=== PATIENT | female | born 1935 | race Caucasian/White ===

== ENCOUNTER 2018-02-01 06:30 | Emergency (ER) | payer OTHER ==
[2018-02-01 07:14] LABS: Absolute Lymphocytes (CBC) 0.8 K/uL (0.7-4.9); Absolute Neutrophil 7.2 K/uL (1.8-8.0); Basophils % 0.3 % (0-1.3); Eosinophils % 0.7 % (0-4.4); Hematocrit 40.4 % (36.0-45.0); Lymphocytes % 8.5 % (15.3-44.8); MCH 30.6 pg (27.0-35.0); MCV 92.7 fL (80-100); MPV 10.8 fL (7.6-11.3); Monocytes % 11.4 % (3.3-12.3); RBC Red Blood Cell Count 4.35 M/uL (3.86-4.86)
[2018-02-01 07:15] LABS: Protime INR 1.07
[2018-02-01 07:19] LABS: BUN Blood Urea Nitrogen 17 mg/dL (7-18); Bicarbonate 32 mmol/L (21-32); CKMB Creatine Kinase MB 2.6 ng/mL (0.3-3.6); Creatine Phosphokinase 71 U/L (26-192); Glucose Level 99 mg/dL (74-106); Magnesium 2.2 mg/dL (1.8-2.4); NT PRO-BNP 3168 pg/mL (<450); Potassium 3.7 mmol/L (3.5-5.1); Sodium Level 142 mmol/L (136-145); Troponin (Emerg Dept Use Only) < 0.02 ng/mL (0.0-0.045)
--- NOTE | 2018-02-01 08:10 | RAD REPORT ---
EXAM DESCRIPTION: CT - [id number] - 02/01/2018 6:56 am CLINICAL HISTORY: Trauma, head and neck injury. PAIN COMPARISON: No comparisons TECHNIQUE: Axial 5 mm thick images of the head were obtained. Axial 2 mm thick images of the cervical spine were obtained with sagittal and coronal reconstruction images generated and reviewed. All CT scans are performed using dose optimization technique as appropriate and may include automated exposure control or mA/KV adjustment according to patient size. FINDINGS: CT HEAD WITHOUT CONTRAST: No acute hemorrhage, hydrocephalus or extra-axial collection is identified.Moderate generalized brain atrophy is present with mild to moderate periventricular and deep white matter chronic microvascular ischemic changes.No areas of brain edema or midline shift. Mild soft tissue swelling is seen anterior to the right zygoma.The paranasal sinuses and mastoids rec ent Chrissy clear. Large ikrk bullosa noted bilaterally.The calvarium is intact. CT CERVICAL SPINE WITHOUT CONTRAST: No fracture or subluxation.Midcervical degenerative changes present with disc thinning and prominent posterior osteophytosis.No prevertebral soft tissues swelling is identified. Carotid atherosclerosis present. Upper lung woods are emphysematous with ill-defined scarring present in the apices. IMPRESSION: No acute intracranial or cervical spine findings. Moderate midcervical degenerative change.
--- NOTE | 2018-02-01 08:10 | RAD REPORT ---
EXAM DESCRIPTION: CT - CTFB CLINICAL HISTORY: FACIAL PAIN Fall, trauma COMPARISON: No comparisons TECHNIQUE: Axial 2 mm thick images of the face were obtained with sagittal and coronal reconstructio n images. All CT scans are performed using dose optimization technique as appropriate and may include automated exposure control or mA/KV adjustment according to patient size. FINDINGS: No acute facial bone fracture is seen.The mandible is intact. The globes and orbital contents are grossly unremarkable.The paranasal sinuses and mastoids are essen tially clear. Scalp hematoma is noted frontal region. Soft tissue swelling is seen also anterior to the right zygom a. IMPRESSION: Negative for facial bone fracture.
[2018-02-01] MEDS ORDERED: LIDOCAINE 1% MPF 5 ML VIAL ONE (09:05)
--- NOTE | 2018-02-01 09:42 | ER ---
Nurse's Notes [facility] Name: Rere Merchant Age: 82 yrs Sex: Female : 1935 Arrival Date: 02/01/2018 Time: 06:38 Bed 2 Private MD: Diagnosis: Fall on same level from slipping, tripping and stumbling;Superficial injury of head;Laceration without foreign body of scalp;Abrasion of left forearm-skin tear;Abrasion of right hand-skin tear Presentation: 02/01 06:41 Presenting complaint: EMS states: EMS called to [facility], nursing staff ea reported unwitnessed fall, laceration on right eyebrow, skin tear to left elbow right hand and left hand, hematoma to right cheek. BGL 120. Care prior to arrival: BP 148/94, pulse:98, RR: 16, BGL 120, C collar. Mechanism of Injury: Fall fall was unwitnessed. Trauma event details: Injury occurred in the [facility], Injury occurred: at home. Injury occurred: February 01, 2018 Injury occurred at: 06:45. 06:41 Acuity: ROLAND 2 ea 06:41 Method Of Arrival: EMS: [facility] ea 07:02 Transition of care: patient was received from another setting of care (long-term care ea facility), [facility]. Onset of symptoms was February 01, 2018. Risk Assessment: Do you want to hurt yourself or someone else? Patient reports no desire to harm self or others. Initial Sepsis Screen: Does the patient meet any 2 criteria? No. Patient's initial sepsis screen is negative. Does the patient have a suspected source of infection? No. Patient's initial sepsis screen is negative. Trauma Activation: Alert Physician: ED Physician; Name: ; Notified At: ; Arrived At: Physician: General Surgeon; Name: ; Notified At: ; Arrived At: Physician: Radiology; Name: ; Notified At: ; Arrived At: Physician: Respiratory; Name: ; Notified At: ; Arrived At: Physician: Lab; Name: ; Notified At: ; Arrived At: Historical: - Allergies: 07:01 PENICILLINS; ea 07:01 Diphenhydramine; ea 07:01 Tetanus-Diphtheria Toxoids-Td; ea - Home Meds: 07:01 aspirin 81 mg Oral chew 1 tab once daily [Active]; docusate sodium 100 mg Oral cap 1 ea cap 2 times per day [Active]; duloxetine 60 mg oral cpDR 1 cap once daily [Active]; fentanyl 12 mcg/hr Topical pt72 1 patch every 72 hours [Active]; furosemide 20 mg Oral tab 1 tab once daily [Active]; Multaq 400 mg oral tab 1 tab 2 times per day [Active]; polyethylene glycol 3350 17 gram/dose oral powd once daily [Active]; Risperdal Oral [Active]; - PMHx: 07:01 Alzheimers; Atrial Fib; Hypertension; CHF; ea - Immunization history:: Adult Immunizations unknown. - Social history:: Smoking status: unknown. - Immunization history: Last tetanus immunization: unknown. - Ebola Screening: : No symptoms or risks identified at this time. Screenin:40 Abuse screen: Denies threats or abuse. Nutritional screening: No deficits noted. ea Tuberculosis screening: No symptoms or risk factors identified. Fall Risk None identified. Primary Survey: 06:40 A: Airway: patent. Breathing/Chest: Respiratory pattern: regular, Respiratory effort: ea spontaneous, Breath sounds: diminished, bilaterally. Chest inspection: symmetrical rise and fall of the chest. Circulation: Heart tones present. Skin color: pale, Skin temperature: cool, warm blanket placed on patient. Disability Alert. 07:03 Reassessment Airway Airway Patent Breathing/Chest Respiratory pattern Regular aa5 Respiratory effort Spontaneous Unlabored Chest inspection Symmetrical. Secondary Survey: 06:40 Injury Description: Laceration sustained to right supraorbital ridge and middle aspect ea of right eyebrow is 2.6 to 7.5 cm long, bleeding moderately. Assessment: 06:46 General: Appears uncomfortable, Behavior is cooperative. Pain: Unable to use pain ea scale. FLACC scale score is 7 out of 10. Neuro: Level of Consciousness is confused, Oriented to person, Pupils are PERRLA. Cardiovascular: Heart tones S1 S2 present Patient's skin is warm and dry. Respiratory: Airway is patent Respiratory effort is even, unlabored, Respiratory pattern is regular, symmetrical, Breath sounds are clear bilaterally. GI: Abdomen is non-distended, Bowel sounds present X 4 quads. Abd is soft and non tender X 4 quads. Derm: laceration noted to right brow area, hematoma noted to right cheek bone, skin tear to right and left hands and left elbow. Injury Description: Laceration sustained to middle aspect of right eyebrow and right supraorbital ridge. 06:50 Reassessment: Pt taken to CT. ea 07:03 Reassessment: Pt back from CT scan. C-collar in place. Warm blankets noted. . aa5 07:03 General: Appears comfortable, Behavior is calm, cooperative. Pain: Unable to use pain aa5 scale. Patient is disoriented. Does not appear to understand pain scale. FLACC scale score is 4 out of 10. Neuro: Level of Consciousness is confused, Oriented to person, Pt able to follow some commands. . Pocket And Pulley Machine Operator are weak bilaterally Moves all extremities. PERRL. Cardiovascular: Heart tones S1 S2 present Rhythm is irregular. Respiratory: Airway is patent Respiratory effort is even, unlabored, Respiratory pattern is regular, symmetrical, Breath sounds are clear bilaterally. GI: Abdomen is flat, non-distended, Bowel sounds present X 4 quads. Abd is soft X 4 quads. : No signs and/or symptoms were reported regarding the genitourinary system. EENT: No signs and/or symptoms were reported regarding the EENT system. Derm: Skin is pink, warm \T\ dry. Bruising that is light purple noted to right side of forehead and right cheek. Laceration noted above right eyebrow, measuring approximately 1 in, no active bleeding noted. Dried blood noted to face. Skin tears noted to proximal knuckle of right index finger, left elbow, and left wrist. No active bleeding noted to skin tears. . Musculoskeletal: Range of motion: intact in all extremities. 07:35 Reassessment: Pt's daughter at bedside. Pt's daughter notified of wait time for lab aa5 results and radiology results. Pt currently resting in bed with eyes closed, respirations even and unlabored, skin is pink/warm/dry. 08:22 Reassessment: Dried blood to face cleaned and wound care completed by CONNOR Arredondo. aa5 08:55 Reassessment: C-collar removed. . aa5 08:55 Neuro: Level of Consciousness is confused, Oriented to person. Respiratory: Airway is aa5 patent Respiratory effort is even, unlabored, Respiratory pattern is regular, symmetrical. Derm: Skin is pink, warm \T\ dry. 08:55 Reassessment: Pt's daughter at bedside. Awaiting laceration repair. . aa5 09:33 Reassessment: AB[employer]NC[employer] MEMBER at bedside completing laceration repair. Pt tolerating well. . aa5 09:40 Neuro: Level of Consciousness is confused, Oriented to person. Respiratory: Airway is aa5 patent Respiratory effort is even, unlabored, Respiratory pattern is regular, symmetrical. Derm: Skin is pink, warm \T\ dry. Vital Signs: 06:40 BP 154 / 46; Pulse 83; Resp 18; Temp 97.6; Pulse Ox 95% on 4 lpm NC; Weight 58.97 kg; ea Height 5 ft. 5 in. (165.10 cm); 07:05 BP 114 / 97; Pulse 99; Resp 18 S; Temp 97.0(TE); Pulse Ox 96% on R/A; aa5 07:30 BP 116 / 82; Pulse 111; Resp 20 S; Temp 97.0(TE); Pulse Ox 98% on R/A; aa5 08:22 BP 120 / 84; Pulse 102; Resp 18 S; Pulse Ox 96% on R/A; aa5 09:20 BP 118 / 80; Pulse 98; Resp 16 S; Temp 97.2(TE); Pulse Ox 97% on R/A; aa5 06:40 Body Mass Index 21.63 (58.97 kg, 165.10 cm) ea Raymond Coma Score: 07:03 Eye Response: spontaneous(4). Verbal Response: confused(4). Motor Response: obeys ea commands(6). Total: 14. Trauma Score (Adult): 06:40 Eye Response: spontaneous(1); Verbal Response: confused(1); Motor Response: obeys ea commands(2); Systolic BP: > 89 mm Hg(4); Respiratory Rate: 10 to 29 per min(4); Raymond Score: 14; Trauma Score: 12 07:05 Eye Response: spontaneous(1); Verbal Response: confused(1); Motor Response: obeys aa5 commands(2); Systolic BP: > 89 mm Hg(4); Respiratory Rate: 10 to 29 per min(4); Raymond Score: 14; Trauma Score: 12 07:30 Eye Response: spontaneous(1); Verbal Response: confused(1); Motor Response: obeys aa5 commands(2); Systolic BP: > 89 mm Hg(4); Respiratory Rate: 10 to 29 per min(4); Raymond Score: 14; Trauma Score: 12 08:22 Eye Response: spontaneous(1); Verbal Response: confused(1); Motor Response: obeys aa5 commands(2); Systolic BP: > 89 mm Hg(4); Respiratory Rate: 10 to 29 per min(4); Raymond Score: 14; Trauma Score: 12 09:20 Eye Response: spontaneous(1); Verbal Response: confused(1); Motor Response: obeys aa5 commands(2); Systolic BP: > 89 mm Hg(4); Respiratory Rate: 10 to 29 per min(4); Raymond Score: 14; Trauma Score: 12 ED Course: 06:38 Patient arrived in ED. em1 06:39 [facility]atelyn Limon [facility]C [facility] kb 06:39 Primitivo Callejas MD is Attending Physician. kb 06:40 Repositioned patient. Cleaned of incontinence. Linen changed. mw2 06:40 Patient has correct armband on for positive identification. Bed in low position. Call ea light in reach. Side rails up X2. 06:40 Arm band placed on right wrist. Patient placed in an exam room, on a stretcher, on ea pulse oximetry. 06:40 Oxygen administration via nasal cannula \T\ 4L/min. Thermoregulation: warm blanket given ea to patient. 06:45 Triage completed. ea 06:52 Inserted saline lock: 22 gauge in right forearm, using aseptic technique. Blood ak1 collected. 06:57 CT Head C Spine In Process Unspecified. EDMS 06:57 CT Facial Bones W/O Con In Process Unspecified. EDMS 07:00 Report received from Earlene RN and ELLIOTT Wright. aa5 07:47 Gema Richey, RN is Primary Nurse. aa5 08:22 Wound care: to skin tears on right hand and left elbow, cleaned with chlorhexidine and dh3 normal saline. Dressed with steri-strips, non-adherent gauze and Kerlix. 08:22 Wound care: to laceration cleaned forehead with chlorhexidine and normal saline. dh3 09:33 Assist provider with laceration repair on above right eyebrow using sutures. Set up aa5 tray. Performed by Katelyn ARGUELLES Dressed with Neosporin, non-adherent dressing and Kerlix Patient tolerated well. 10:19 IV discontinued, intact, bleeding controlled, No redness/swelling at site. Pressure aa5 dressing applied. Administered Medications: 09:32 Drug: Lidocaine (1 %) 1 vials {Note: administered during laceration repair by [employer] MEMBER.} aa5 Volume: 5 ml; Route: Infiltration; :45 Drug: Tylenol 1000 mg Route: PO; aa5 10:19 Follow up: Response: No adverse reaction aa5 Intake: :45 PO: 60ml (Water); Total: 60ml. aa5 Outcome: :42 Discharge ordered by . reece :42 Patient's length of stay in the Emergency Department was greater than 2 hours. aa5 10:19 Discharged to home via wheelchair, with family. aa5 10:19 Condition: stable 10:19 Discharge instructions given to Pt's daughter Instructed on discharge instructions, follow up and referral plans. wound care, Demonstrated understanding of instructions, follow-up care, Report given to Irlanda at [facility]. 10:20 Patient left the ED. aa5 Signatures: Dispatcher [employer] EDMS Katelyn Limon, BALLOON DIPPER-C BALLOON DIPPER-CkAmandeep Jimenez em1 Gema Richey, RN RN 5 Earlene Washington RN RN msMaria Elena Shields [facility] Adriana Olivo, RN RN Vanessa Miner 2 Corrections: (The following items were deleted from the chart) 06:56 06:41 Care prior to arrival: BP 148/94, pulse:98, RR: 16, BGL 120 [facility] 08:49 08:22 Wound care: to skin tears on right hand and left elbow, cleaned with dh3 chlorhexidine and normal saline. Dressed with steri-strips, non-adherent gauze and tube gauze. dh3
--- NOTE | 2018-02-01 09:43 | EDPHYS ---
Physician Documentation [facility] Name: Rere Merchant Age: 82 yrs Sex: Female : 1935 Arrival Date: 02/01/2018 Time: 06:38 Bed 2 Private MD: ED Physician Primitivo Callejas HPI: 02/01 07:48 This 82 yrs old Female presents to ER via EMS with complaints of Fall Injury. kb 07:48 Details of fall: The patient fell from an upright position. Onset: The symptoms/episode kb began/occurred this morning. Associated injuries: The patient sustained injury to the head, contusion, hematoma, laceration, 5 cm(s), swelling, left arm and right hand, skin tear. Severity of symptoms: At their worst the symptoms were moderate, in the emergency department the symptoms are unchanged. The patient has not experienced similar symptoms in the past. The patient has not recently seen a physician. EMS reports they were called for fall from standing. Fall was unwitnessed. Unknown LOC, unknown downtime. Pt oriented to person only, which is normal for her. Laceration above right eye, hematoma below right eye, skin tears to left forearm and right hand. . Historical: - Allergies: 07:01 PENICILLINS; ea 07:01 Diphenhydramine; ea 07:01 Tetanus-Diphtheria Toxoids-Td; ea - Home Meds: 07:01 aspirin 81 mg Oral chew 1 tab once daily [Active]; docusate sodium 100 mg Oral cap 1 ea cap 2 times per day [Active]; duloxetine 60 mg oral cpDR 1 cap once daily [Active]; fentanyl 12 mcg/hr Topical pt72 1 patch every 72 hours [Active]; furosemide 20 mg Oral tab 1 tab once daily [Active]; Multaq 400 mg oral tab 1 tab 2 times per day [Active]; polyethylene glycol 3350 17 gram/dose oral powd once daily [Active]; Risperdal Oral [Active]; - PMHx: 07:01 Alzheimers; Atrial Fib; Hypertension; CHF; ea - Immunization history:: Adult Immunizations unknown. - Social history:: Smoking status: unknown. - Immunization history: Last tetanus immunization: unknown. - Ebola Screening: : No symptoms or risks identified at this time. ROS: 07:45 Constitutional: Negative for fever, chills, and weight loss, Cardiovascular: Negative kb for chest pain, palpitations, and edema, Respiratory: Negative for shortness of breath, cough, wheezing, and pleuritic chest pain, Abdomen/GI: Negative for abdominal pain, nausea, vomiting, diarrhea, and constipation. 07:45 MS/extremity: Positive for of the right hand and left arm, skin tears. 07:45 Skin: Positive for ecchymosis, laceration(s), of the right lower eyelid and right side of forehead. Exam: 07:45 Chest/axilla: Normal chest wall appearance and motion. Nontender with no deformity. kb No lesions are appreciated. Cardiovascular: Regular rate and rhythm with a normal S1 and S2. No gallops, murmurs, or rubs. Normal PMI, no JVD. No pulse deficits. Respiratory: Lungs have equal breath sounds bilaterally, clear to auscultation and percussion. No rales, rhonchi or wheezes noted. No increased work of breathing, no retractions or nasal flaring. Abdomen/GI: Soft, non-tender, with normal bowel sounds. No distension or tympany. No guarding or rebound. No evidence of tenderness throughout. 07:45 Constitutional: The patient appears alert, awake. 07:45 Head/face: Noted is no obvious of injury or deformity except contusion, that is superficial, of the right lower eyelid, ecchymosis, that is moderate, of the right lower eyelid, a laceration(s), that is superficial, of the right side of forehead, swelling, that is moderate, of the right lower eyelid and right side of forehead. 07:45 Skin: injury, skin tears to left arm and right hand. 07:45 Neuro: Orientation: no acute changes, per family, to person, Mentation: no acute changes, per family. Vital Signs: 06:40 BP 154 / 46; Pulse 83; Resp 18; Temp 97.6; Pulse Ox 95% on 4 lpm NC; Weight 58.97 kg; ea Height 5 ft. 5 in. (165.10 cm); 07:05 BP 114 / 97; Pulse 99; Resp 18 S; Temp 97.0(TE); Pulse Ox 96% on R/A; aa5 07:30 BP 116 / 82; Pulse 111; Resp 20 S; Temp 97.0(TE); Pulse Ox 98% on R/A; aa5 08:22 BP 120 / 84; Pulse 102; Resp 18 S; Pulse Ox 96% on R/A; aa5 09:20 BP 118 / 80; Pulse 98; Resp 16 S; Temp 97.2(TE); Pulse Ox 97% on R/A; aa5 06:40 Body Mass Index 21.63 (58.97 kg, 165.10 cm) ea Raymond Coma Score: 07:03 Eye Response: spontaneous(4). Verbal Response: confused(4). Motor Response: obeys ea commands(6). Total: 14. Trauma Score (Adult): 06:40 Eye Response: spontaneous(1); Verbal Response: confused(1); Motor Response: obeys ea commands(2); Systolic BP: > 89 mm Hg(4); Respiratory Rate: 10 to 29 per min(4); Raymond Score: 14; Trauma Score: 12 07:05 Eye Response: spontaneous(1); Verbal Response: confused(1); Motor Response: obeys aa5 commands(2); Systolic BP: > 89 mm Hg(4); Respiratory Rate: 10 to 29 per min(4); Raymond Score: 14; Trauma Score: 12 07:30 Eye Response: spontaneous(1); Verbal Response: confused(1); Motor Response: obeys aa5 commands(2); Systolic BP: > 89 mm Hg(4); Respiratory Rate: 10 to 29 per min(4); Ryamond Score: 14; Trauma Score: 12 08:22 Eye Response: spontaneous(1); Verbal Response: confused(1); Motor Response: obeys aa5 commands(2); Systolic BP: > 89 mm Hg(4); Respiratory Rate: 10 to 29 per min(4); Raymond Score: 14; Trauma Score: 12 09:20 Eye Response: spontaneous(1); Verbal Response: confused(1); Motor Response: obeys aa5 commands(2); Systolic BP: > 89 mm Hg(4); Respiratory Rate: 10 to 29 per min(4); Harrison Score: 14; Trauma Score: 12 Laceration: 09:39 Wound Repair of 5cm ( 2.0in ) subcutaneous laceration to right side of forehead. kb Irregularly shaped.. Distal neuro/vascular/tendon intact. Anesthesia: Wound infiltrated with 2.5 mls of 1% lidocaine. Wound prep: Extensive cleansing with hibiclenz by nurse, Wound irrigation with saline by nurse. Skin closed with 12 6-0 Prolene using interrupted sutures and sterile technique. Dressed with Neosporin. Patient tolerated well. MDM: 06:39 Patient medically screened. kb 07:43 Data reviewed: vital signs, nurses notes. Data interpreted: Pulse oximetry: on room air kb is 95 %. Interpretation: normal. 09:41 Counseling: I had a detailed discussion with the patient and/or guardian regarding: the kb historical points, exam findings, and any diagnostic results supporting the discharge/admit diagnosis, lab results, radiology results, the need for outpatient follow up, a family practitioner, to return to the emergency department if symptoms worsen or persist or if there are any questions or concerns that arise at home. 02/01 06:41 Order name: Basic Metabolic Panel; Complete Time: 07:19 kb 02/01 06:41 Order name: CBC with Diff; Complete Time: 07:18 kb 02/01 06:41 Order name: Magnesium; Complete Time: 07:19 kb 02/01 06:41 Order name: NT PRO-BNP; Complete Time: 07:19 kb 02/01 06:41 Order name: PT-INR; Complete Time: 07:37 kb 02/01 06:41 Order name: Troponin (emerg Dept Use Only); Complete Time: 07:19 kb 02/01 06:41 Order name: CT Head C Spine; Complete Time: 08:12 kb 02/01 06:41 Order name: CT Facial Bones W/O Con; Complete Time: 08:12 kb 02/01 06:41 Order name: Cardiac monitoring; Complete Time: 07:09 kb 02/01 06:41 Order name: CPK; Complete Time: 07:19 kb 02/01 06:41 Order name: Ckmb; Complete Time: 07:19 kb 02/01 06:41 Order name: EKG - Nurse/Tech; Complete Time: 07:09 kb 02/01 06:41 Order name: IV Saline Lock; Complete Time: 06:51 kb 02/01 06:41 Order name: Labs collected and sent; Complete Time: 06:51 kb 02/01 06:41 Order name: O2 Per Protocol; Complete Time: 06:43 kb 02/01 06:41 Order name: O2 Sat Monitoring; Complete Time: 06:43 kb 02/01 07:52 Order name: Wound Care: clean and dress skin tears ; Complete Time: 08:25 kb 02/01 09:39 Order name: Prolene, Sutures; Complete Time: 09:43 kb 02/01 09:39 Order name: Dressing - Wound; Complete Time: 09:43 kb 02/01 09:39 Order name: Gloves, Sterile; Complete Time: 09:43 kb 02/01 09:39 Order name: Setup Suture Tray; Complete Time: 09:43 kb Administered Medications: 09:32 Drug: Lidocaine (1 %) 1 vials {Note: administered during laceration repair by HANDLE BAR ASSEMBLER.} aa5 Volume: 5 ml; Route: Infiltration; 09:45 Drug: Tylenol 1000 mg Route: PO; aa5 10:19 Follow up: Response: No adverse reaction aa5 Disposition: 02/01/18 09:42 Discharged to Home. Impression: Fall on same level from slipping, tripping and stumbling, Superficial injury of head, Laceration without foreign body of scalp, Abrasion of left forearm - skin tear, Abrasion of right hand - skin tear. - Condition is Stable. - Discharge Instructions: Laceration Care, Adult, [id number], Skin Tear Care, [id number], Head Injury, Adult, [id number]. - Medication Reconciliation Form, Thank You Letter, Antibiotic Education, Prescription Opioid Use form. - Follow up: Emergency Department; When: As needed; Reason: Worsening of condition. Follow up: Private Physician; When: 2 - 3 days; Reason: Recheck today's complaints, Continuance of care, Re-evaluation by your physician. - Notes: Have sutures removed in 7-10 days Addendum: 02/04/2018 06:40 Co-signature as Attending Physician, Primitivo Callejas MD. g s Signatures: Dispatcher [employer] Katelyn Cohen, ADRIANNE-Winston SILVER-Gema Pleitez RN RN aa5 Adriana Olivo RN RN ea Starr, Gregory, MD MD gs Corrections: (The following items were deleted from the chart) 02/01 09:43 09:42 02/01/2018 09:42 Discharged to Home. Impression: Fall on same level from kb slipping, tripping and stumbling; Superficial injury of head; Laceration without foreign body of scalp; Abrasion of left forearm; Abrasion of right hand. Condition is Stable. Forms are Medication Reconciliation Form, Thank You Letter, Antibiotic Education, Prescription Opioid Use. kb 10:20 09:43 02/01/2018 09:42 Discharged to Home. Impression: Fall on same level from aa5 slipping, tripping and stumbling; Superficial injury of head; Laceration without foreign body of scalp; Abrasion of left forearm - skin tear; Abrasion of right hand - skin tear. Condition is Stable. Discharge Instructions: Laceration Care, Adult, [id number], Skin Tear Care, [id number], Head Injury, Adult, [id number]. Forms are Medication Reconciliation Form, Thank You Letter, Antibiotic Education, Prescription Opioid Use. Follow up: Emergency Department; When: As needed; Reason: Worsening of condition. Follow up: Private Physician; When: 2 - 3 days; Reason: Recheck today's complaints, Continuance of care, Re-evaluation by your physician. kb
[2018-02-01] MEDS ORDERED: ACETAMINOPHEN 500 MG TAB ONE ×2 (09:50)
== END 2018-02-01 10:20 | disposition home or self-care (01) ==
LOC: ER 06:30
PROC: 0JQ10ZZ Repair Face Subcutaneous Tissue and Fascia, Open Approach (ICD-10-PCS; principal; 2018-02-01)
DX: S01.01XA Laceration without foreign body of scalp, initial encounter (principal); S50.812A Abrasion of left forearm, initial encounter; S60.511A Abrasion of right hand, initial encounter; W01.0XXA Fall on same level from slipping, tripping and stumbling without subsequent striking against object, initial encounter; Y93.9 Activity, unspecified; Y92.9 Unspecified place or not applicable; Z79.82 Long term (current) use of aspirin; Z88.0 Allergy status to penicillin; Z88.7 Allergy status to serum and vaccine; Z88.8 Allergy status to other drugs, medicaments and biological substances; I48.91 Unspecified atrial fibrillation; I10 Essential (primary) hypertension; G30.9 Alzheimer's disease, unspecified; F02.80 Dementia in other diseases classified elsewhere, unspecified severity, without behavioral disturbance, psychotic disturbance, mood disturbance, and anxiety
CPT/HCPCS: 36415; 70450; 70486; 72125; 76377; 80048; 82550; 82553; 83735; 83880; 84484; 85025; 85610; 99285

== ENCOUNTER 2018-04-01 20:25 | Inpatient (IN) | payer OTHER ==
[2018-04-01] MEDS ORDERED: NA CHLORIDE 0.9% 250 ML ONE ×2 (21:02→23:16)
--- NOTE | 2018-04-01 21:47 | RAD REPORT ---
EXAM DESCRIPTION: CT - CTHCSPWOC - 04/01/2018 9:19 pm CLINICAL HISTORY: Fall, head and neck injury COMPARISON: CT head and cervical January 2018 TECHNIQUE: Axial 5 mm thick images of the head were obtained. Axial 2 mm thick images of the cervic al spine were obtained with sagittal and coronal reconstruction images generated and reviewed. All CT scans are performed using dose optimization technique as appropriate and may include automated exposure control or mA/KV adjustment according to patient size. FINDINGS: No intracranial hemorrhage, mass, edema or acute intracranial finding. No acute cortical b ased infarction identified. Patient has prominent atrophy and chronic ischemic change. Old posterior right parietal CVA changes match the comparison. Ventricles are in proportion to volume loss. Overall intracranial findings are similar to comparison. Mastoid air cells and paranasal sinuses are clear. No globe or orbit abnormality seen. Left lateral scalp hematoma is present. Cervical bodies are normal in height. No subluxation abnormalities. C2-3 disc space narrowing is seen with calcification in the disc space. This is probably at least partially fused. Significant degener ative change present at the dens anterior C1 level. Significant C4-5, C5-6 and C6-7 disc space narrow ing and endplate spurring. Bony foraminal encroachment present at these levels. No fracture or acute bony abnormality. No pathologic bone process. Central canal detail is inherently limited. No paraspinal mass or hematoma. Apical scarring changes are present. IMPRESSION: No hemorrhage or acute intracranial finding. Atrophy, old infarction changes and chronic ischemic changes are present matching the January 2018 s tudy. Prominent cervical spine degenerative changes are present matching the comparison. No fracture or acu te finding.
--- NOTE | 2018-04-01 21:52 | RAD REPORT ---
EXAM DESCRIPTION: RAD - Pelvis - 04/01/2018 9:34 pm CLINICAL HISTORY: Fall, pelvic pain COMPARISON: None. TECHNIQUE: AP imaging of the pelvis was obtained. FINDINGS: Intertrochanteric left femur fracture is present. Lesser trochanter remains attached to th e shaft of the femur. Femoral neck fracture is not confirmed. Left femoral head maintains positioning in the acetabulum. No pathologic bone process seen. Femoral neck also appears to be intact. There is superior migration of the shaft of the left femur. 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 There is flattening of the superior margin of the right femoral head. This appears to be all chronic change. There is old fracture change to the right inferior pubic leighton s. Bony pelvis is quite osteopenic limiting sensitivity of the examination. Sacral ala also very osteop enic and limited in assessment. SI joint degenerative change noted. No significant soft tissue finding. There is some contusion or edema lateral to the left femur. IMPRESSION: Left femur intertrochanteric fracture as detailed. Right protrusio acetabuli. Osteopenic pelvis limiting assessment. No gross bony pelvic fracture change.
--- NOTE | 2018-04-01 21:54 | RAD REPORT ---
EXAM DESCRIPTION: RAD - Chest Single View - 04/01/2018 9:34 pm CLINICAL HISTORY: Fall, shortness of breath, preop chest examination for femur fracture repair COMPARISON: None. TECHNIQUE: AP portable chest image was obtained 2110 hours . FINDINGS: Diffuse fibrotic lung pattern seen in the lung parenchyma. Pulmonary contusion not suspect ed. In the absence of comparison, interstitial edema or infiltrate cannot be excluded. Significant fa ilure or volume overload doubtful. Heart size normal. Trachea is midline. No measurable pleural effus ion and no pneumothorax. Old degenerative intra matted changes noted to the skeleton. Advanced right shoulder degenerative change present only partially imaged. No acute aortic findings suspected. IMPRESSION: Patient has extensive interstitial lung disease believed to be chronic disease. In the absence of comparison, some component of interstitial edema or infiltrate cannot be excluded. Pneumothorax, pleural fluid and pulmonary contusion not identified.
--- NOTE | 2018-04-01 21:55 | RAD REPORT ---
EXAM DESCRIPTION: RAD - Femur Left - 04/01/2018 9:36 pm CLINICAL HISTORY: Fall, hip and leg pain COMPARISON: None. FINDINGS: AP and cross-table lateral views were obtained. Patient has an intertrochanteric left femu r fracture. Lesser trochanter remains intact to the femur. Femoral head maintains good positioning in the acetabulum. Bones are osteopenic limiting assessment. There may be some involvement of the later al base of the femoral neck. Pathologic etiology is not suspected. Shaft of the femur on the left is intact. No joint effusion. No acute finding in the knee joint. No a ir or foreign body in the soft tissues. IMPRESSION: Left intertrochanteric fracture. Pathologic etiology not suspected. Bones are osteopenic limiting detail. Extension of the fracture into the lateral superior base of the neck cannot be excluded.
--- NOTE | 2018-04-01 22:06 | EDPHYS ---
Physician Documentation [facility] Name: Rere Merchant Age: 82 yrs Sex: Female : 1935 Arrival Date: 04/01/2018 Time: 20:34 Bed 24 Private MD: ED Physician Bentley Mesa HPI: 04/01 20:49 This 82 yrs old Female presents to ER via EMS with complaints of Fall Injury. rn 20:49 Details of fall: The patient fell from seated position. Onset: The symptoms/episode rn began/occurred just prior to arrival. Associated injuries: The patient sustained injury to the head. Severity of symptoms: At their worst the symptoms were mild, in the emergency department the symptoms are unchanged. The patient has experienced a previous episode. Per EMS report, fall from sitting position, per eport tried to stand up, fell forward, hit ground, no LOC, + lac above left eye, no other obvious trauma. . Historical: - Allergies: 21:05 Diphenhydramine; bb 21:05 PENICILLINS; bb 21:05 Tetanus-Diphtheria Toxoids-Td; bb - Home Meds: 21:05 aspirin 81 mg Oral chew 1 tab once daily [Active]; docusate sodium 100 mg Oral cap 1 bb cap 2 times per day [Active]; duloxetine 60 mg Oral cpDR 1 cap once daily [Active]; fentanyl 12 mcg/hr Topical pt72 1 patch every 72 hours [Active]; furosemide 20 mg Oral tab 1 tab once daily [Active]; Multaq 400 mg Oral tab 1 tab 2 times per day [Active]; polyethylene glycol 3350 17 gram/dose Oral powd once daily [Active]; Risperdal Consta 12.5 mg/2 mL intramuscular syrg 4 mL every 14 days [Active]; Remeron 15 mg Oral tab 1 tab once daily [Active]; Depakote Sprinkles 125 mg Oral cpSP 1 caps 2 times per day [Active]; - PMHx: 21:05 Alzheimers; Atrial Fib; CHF; Hypertension; bb - Immunization history: Last tetanus immunization: unknown. - Social history:: Smoking status: Patient/guardian denies using tobacco, Patient/guardian denies using alcohol, street drugs. - Family history:: not pertinent. - Ebola Screening: : No symptoms or risks identified at this time. - Hospitalizations: : No recent hospitalization is reported. ROS: 20:49 Constitutional: Negative for fever, chills, and weight loss, Eyes: Negative for injury, rn pain, redness, and discharge, Neck: Negative for injury, pain, and swelling, Cardiovascular: Negative for chest pain, palpitations, and edema, Respiratory: Negative for shortness of breath, cough, wheezing, and pleuritic chest pain, Abdomen/GI: Negative for abdominal pain, nausea, vomiting, diarrhea, and constipation, MS/Extremity: Negative for injury and deformity, Skin: + facial laceration Neuro: Negative for headache, weakness, numbness, tingling, and seizure. Exam: 20:49 Constitutional: Thin cachectic female, no acute distress Head/Face: Normocephalic, rn atraumatic. Cardiovascular: Irregular rhythm and tachycardic, no murmur Respiratory: Lungs have equal breath sounds bilaterally, clear to auscultation Abdomen/GI: soft, non-tender Back: no spinal tenderness MS/ Extremity: painful ROM left leg without focal tenderness Neuro: Awake, alert, answer some questions but appears confused (unknown if baseline), moves all 4 extremities. Vital Signs: 20:49 BP 130 / 96; Pulse 132; Resp 18 S; Temp 99(A); Pulse Ox 96% on R/A; Weight 45.36 kg bb (R); Height 5 ft. 3 in. (160.02 cm); Pain 4/10; 21:54 BP 115 / 70; Pulse 130; Resp 20; Temp 98.8(R); Pulse Ox 96% on R/A; la1 23:16 BP 115 / 85; Pulse 155; Resp 22; Pulse Ox 96% on 2 lpm NC; la1 23:30 BP 105 / 72; Pulse 129; Resp 18; Pulse Ox 96% on 2 lpm NC; la1 23:34 BP 92 / 61; Pulse 130; Pulse Ox 96% on 2 lpm NC; la1 04/02 00:01 BP 82 / 59; Pulse 134; Resp 16 S; Pulse Ox 97% on 4 lpm NC; bb 00:04 BP 92 / 61; Pulse 133; Resp 16; Pulse Ox 97% on 2 lpm NC; la1 04/01 20:49 Body Mass Index 17.71 (45.36 kg, 160.02 cm) bb Clearwater Coma Score: 04/01 20:49 Eye Response: spontaneous(4). Verbal Response: inappropriate words(3). Motor Response: bb localizes pain(5). Total: 12. Trauma Score (Adult): 20:49 Eye Response: spontaneous(1); Verbal Response: inappropriate words(0); Motor Response: bb localizes pain(1); Systolic BP: > 89 mm Hg(4); Respiratory Rate: 10 to 29 per min(4); Clear[place] Score: 12; Trauma Score: 10 22:27 Eye Response: spontaneous(1); Verbal Response: confused(1); Motor Response: withdraws la1 from pain(1); Systolic BP: > 89 mm Hg(4); Respiratory Rate: 10 to 29 per min(4); Raymond Score: 12; Trauma Score: 11 Laceration: 23:56 Wound Repair of 3cm ( 1.2in ) subcutaneous laceration to middle aspect of left eyebrow snw and outer aspect of left eyebrow. Linear shaped.. Distal neuro/vascular/tendon intact. Anesthesia: Local anesthetic administered with 4 mls of 1% lidocaine w/ Epi. Wound prep: Moderate cleansing with hibiclenz by me. Skin closed with 5 6-0 Prolene using simple sutures and sterile technique. Patient tolerated well. 23:56 Wound Repair of 3cm ( 1.2in ) subcutaneous laceration to left temporal area. Linear snw shaped.. Distal neuro/vascular/tendon intact. Anesthesia: Local anesthetic administered with 0 mls of 1% lidocaine. Wound prep: Moderate cleansing with hibiclenz by nurse. Skin closed with 3 1-0 Kunal using staple gun. Dressed with none. Patient tolerated well. MDM: 20:38 Patient medically screened. rn 22:02 Differential diagnosis: abrasion, closed head injury, contusion, fracture, laceration. rn Data reviewed: vital signs, nurses notes, lab test result(s), radiologic studies, CT scan, plain films, and as a result, I will admit patient. Counseling: I had a detailed discussion with the patient and/or guardian regarding: the historical points, exam findings, and any diagnostic results supporting the discharge/admit diagnosis, lab results, radiology results, the need for further work-up and treatment in the hospital. Response to treatment: the patient's symptoms have mildly improved after treatment. Admission orders: after a detailed discussion of the patient's condition and case, the admit orders are written by me. Special discussion:. ED course: Pt with negative ct head/cspine, + left intertrochanteric femur fracture, patient not ambulatory, bed-bound, will admit for pain control, observation of head injury, and ortho consult. . 04/01 20:41 Order name: Basic Metabolic Panel rn 04/01 20:41 Order name: CBC with Diff rn 04/01 20:41 Order name: XRAY Pelvis; Complete Time: 21:59 rn 04/01 20:41 Order name: Type And Screen rn 04/01 23:08 Order name: ABO/RH no charge EDMS 04/01 20:41 Order name: XRAY Chest (1 view); Complete Time: 21:59 rn 04/01 20:41 Order name: CT Head C Spine; Complete Time: 21:59 rn 04/01 20:41 Order name: XRAY Femur LEFT; Complete Time: 21:59 rn 04/01 20:41 Order name: Labs collected and sent; Complete Time: 22:46 rn 04/01 20:49 Order name: EKG; Complete Time: 20:50 rn 04/01 20:49 Order name: EKG - Nurse/Tech; Complete Time: 22:02 rn 04/01 22:01 Order name: Davis; Complete Time: 22:27 la1 04/01 22:44 Order name: Prolene, Sutures; Complete Time: 22:45 la1 04/01 22:44 Order name: Dressing - Wound; Complete Time: 22:45 la1 04/01 22:44 Order name: Gloves, Sterile; Complete Time: 22:45 la1 04/01 22:44 Order name: Setup Suture Tray; Complete Time: 22:45 la1 Administered Medications: 22:26 Drug: morphine 2 mg Route: IVP; Site: left forearm; la1 22:29 Follow up: Response: No adverse reaction; Pain is decreased la1 22:27 Drug: Zofran 4 mg Route: IVP; Site: left forearm; la1 22:45 Follow up: Response: No adverse reaction la1 22:29 Drug: NS 0.9% 250 ml Route: IV; Rate: bolus; Site: left forearm; la1 22:40 Follow up: IV Status: Completed infusion la1 22:45 Drug: Lidocaine-Epinephrine -1%: (1:100,000) 10 ml Volume: 20 ml; Route: Infiltration; la1 23:34 Drug: Lopressor 2.5 mg Route: IVP; Site: left forearm; la1 04/02 00:06 Follow up: Response: No adverse reaction; HR decreased la1 00:03 Drug: NS 0.9% 500 ml Route: IV; Rate: bolus; Site: left forearm; la1 00:06 Follow up: IV Status: Completed infusion la1 Disposition: 03:08 Co-signature as Attending Physician, Bentley Mesa MD. rn Disposition: 04/01/18 22:04 Hospitalization ordered by Guera Giordano for Inpatient Admission. Preliminary diagnosis are Intertrochanteric fracture of femur, Superficial injury of head. - Bed requested for Telemetry/MedSurg (Inpatient). - Status is Inpatient Admission. bb - Condition is Stable. - Problem is new. - Symptoms have improved. UTI on Admission? No Signatures: Dispatcher [employer] EDPR Yulia Jeffries RN Chrissy Schroeder, RN HOUSE SUPERVISOR-C RN HOUSE SUPERVISOR-Csnw Yasimn Mtz RN Stephanie Young RN RN bb Nieto, Roman, MD MD rn Attema, Lee, RN RN la1 Corrections: (The following items were deleted from the chart) 04/01 22:20 20:42 Creatinine for Radiology+C.LAB.BRZ ordered. [facility] EDMS 23:25 22:04 Hospitalization Ordered by Guera Giordano MD for Inpatient Admission. Preliminary diagnosis is Intertrochanteric fracture of femur; Superficial injury of head. Bed requested for Telemetry/MedSurg (Inpatient). Status is Inpatient Admission. Condition is Stable. Problem is new. Symptoms have improved. UTI on Admission? No. rn 04/02 00:25 04/01 23:25 04/01/2018 22:04 Hospitalization Ordered by Guera Giordano MD for Inpatient bb Admission. Preliminary diagnosis is Intertrochanteric fracture of femur; Superficial injury of head. Bed requested for Telemetry/MedSurg (Inpatient). Status is Inpatient Admission. Condition is Stable. Problem is new. Symptoms have improved. UTI on Admission? No. kl
--- NOTE | 2018-04-01 22:06 | ER ---
Nurse's Notes [facility] Name: Rere Merchant Age: 82 yrs Sex: Female : 1935 Arrival Date: 04/01/2018 Time: 20:34 Bed 24 Private MD: Diagnosis: Intertrochanteric fracture of femur;Superficial injury of head Presentation: 04/01 20:40 Transition of care: patient was received from another setting of care (long-term care facility), [place]. Onset of symptoms was April 01, 2018. Risk Assessment: Do you want to hurt yourself or someone else? Patient reports no desire to harm self or others. Initial Sepsis Screen: Does the patient meet any 2 criteria? No. Patient's initial sepsis screen is negative. Does the patient have a suspected source of infection? No. Patient's initial sepsis screen is negative. 20:40 Trauma event details: Injury occurred in the [facility], Injury occurred: in an bb institution. Injury occurred: April 01, 2018. 20:47 Presenting complaint: EMS states: they were toned out for report of pt having a bb witnessed fall without LOC pt did receive lac to left brow and skin tear to left pinky finger. Care prior to arrival: None. Mechanism of Injury: Fall wheelchair. 20:47 Acuity: ROLAND 2 bb 20:47 Method Of Arrival: EMS: [facility] Trauma Activation: Alert Physician: ED Physician; Name: Moshe; Notified At: 20:34; Arrived At: 20:34 Physician: General Surgeon; Name: ; Notified At: 20:34; Arrived At: Physician: Radiology; Name: Shanique Rubio Betty; Notified At: 20:34; Arrived At: 20:36 Physician: Respiratory; Name: ; Notified At: 20:34; Arrived At: Physician: Lab; Name: ; Notified At: 20:34; Arrived At: Historical: - Allergies: 21:05 Diphenhydramine; bb 21:05 PENICILLINS; bb 21:05 Tetanus-Diphtheria Toxoids-Td; bb - Home Meds: 21:05 aspirin 81 mg Oral chew 1 tab once daily [Active]; docusate sodium 100 mg Oral cap 1 bb cap 2 times per day [Active]; duloxetine 60 mg Oral cpDR 1 cap once daily [Active]; fentanyl 12 mcg/hr Topical pt72 1 patch every 72 hours [Active]; furosemide 20 mg Oral tab 1 tab once daily [Active]; Multaq 400 mg Oral tab 1 tab 2 times per day [Active]; polyethylene glycol 3350 17 gram/dose Oral powd once daily [Active]; Risperdal Consta 12.5 mg/2 mL intramuscular syrg 4 mL every 14 days [Active]; Remeron 15 mg Oral tab 1 tab once daily [Active]; Depakote Sprinkles 125 mg Oral cpSP 1 caps 2 times per day [Active]; - PMHx: 21:05 Alzheimers; Atrial Fib; CHF; Hypertension; bb - Immunization history: Last tetanus immunization: unknown. - Social history:: Smoking status: Patient/guardian denies using tobacco, Patient/guardian denies using alcohol, street drugs. - Family history:: not pertinent. - Ebola Screening: : No symptoms or risks identified at this time. - Hospitalizations: : No recent hospitalization is reported. Screenin:49 Abuse screen: Denies threats or abuse. Tuberculosis screening: No symptoms or risk bb factors identified. 21:06 Nutritional screening: No deficits noted. Fall Risk Fall in past 12 months (25 points). bb Secondary diagnosis (15 points) Alzheimer's, dementia, impaired mobility, IV access (20 points). Ambulatory Aid- None/Bed Rest/Nurse Assist (0 pts). Gait- Normal/Bed Rest/Wheelchair (0 pts) Mental Status- Overestimates/Forgets Limitations (15 pts.). Total Kramer Fall Scale indicates High Risk Score (45 or more points). Fall prevention measures have been instituted. Side Rails Up X 2 Frequent Obs/Assessments Occuring Family Present and informed to notify staff if the need to leave the bedside As available patient and family educated on Fall Prevention Program and Strategies. Primary Survey: 20:54 NO uncontrolled hemorrhage observed. A: The patient needs verbal stimulation to bb respond. Airway: patent. Breathing/Chest: Respiratory pattern: regular, Respiratory effort: spontaneous, unlabored, Breath sounds: clear, bilaterally. Chest inspection: symmetrical rise and fall of the chest. Circulation: Heart tones present. Pulses: palpable right radial artery and left radial artery. Skin color: pink, Skin temperature: warm, dry. Disability Verbal Stimuli. Exposure/Environment: All clothing and personal items were removed. Forensic evidence collection is not deemed to be indicated at this time. Items placed in patient belonging bag. There is no evidence of uncontrolled external bleeding. Obvious injury(ies) are noted at this time: laceration to left brow, old skin tear to right forearm, new skin tear to left pinky finger. 21:59 Reassessment Airway Airway Patent Breathing/Chest Respiratory pattern Regular la1 Respiratory effort Spontaneous Unlabored Circulation Color Dix Temperature Warm Disability Alert. Secondary Survey: 20:54 HEENT: Face Other laceration to left brow. Gastrointestinal: No deficits noted. : No bb deficits noted. Musculoskeletal: Capillary refill < 3 seconds, Tenderness present in left leg. Assessment: 20:54 General: Appears uncomfortable, slender, Behavior is restless. Pain: Unable to use pain bb scale. FLACC scale score is 4 out of 10. Neuro: Level of Consciousness is awake, Oriented to none. Cardiovascular: Heart tones S1 S2 present Capillary refill < 3 seconds Patient's skin is warm and dry. Rhythm is atrial fibrillation with rapid ventricular response. Respiratory: Respiratory effort is even, unlabored, Respiratory pattern is regular, Breath sounds are clear bilaterally. GI: Abdomen is non-distended. Derm: Skin is fragile, with poor turgor has skin tears on right forearm, left pinky finger. Musculoskeletal: Capillary refill < 3 seconds. 21:09 Reassessment: pt to CT scan via stretcher with music sound light technician. bb 22:00 Reassessment: Patient appears in no apparent distress at this time. No changes from la1 previously documented assessment. Patient and/or family updated on plan of care and expected duration. Pain level reassessed. 23:15 Reassessment: Pt's heart rate increasing to the 150-160. Dr Mesa notified and pt to fc get Metoprolol and bolus. Also Dr Giordano in to see pt and speak to family about pt's condition. He is also requesting that the Metoprolol be given IV x [address] Mesa agrees. 23:32 Reassessment: Patient appears in no apparent distress at this time. HR has decreased in la1 to the 120s. 04/02 00:00 Reassessment: report called to Kelsi GALLAGHER for room 411 pt receiving 500 mL bolus of bb normal saline for BP of 82/59 prior to transfer, family at bedside. Vital Signs: 04/01 20:49 BP 130 / 96; Pulse 132; Resp 18 S; Temp 99(A); Pulse Ox 96% on R/A; Weight 45.36 kg bb (R); Height 5 ft. 3 in. (160.02 cm); Pain 4/10; 21:54 BP 115 / 70; Pulse 130; Resp 20; Temp 98.8(R); Pulse Ox 96% on R/A; la1 23:16 BP 115 / 85; Pulse 155; Resp 22; Pulse Ox 96% on 2 lpm NC; la1 23:30 BP 105 / 72; Pulse 129; Resp 18; Pulse Ox 96% on 2 lpm NC; la1 23:34 BP 92 / 61; Pulse 130; Pulse Ox 96% on 2 lpm NC; la1 04/02 00:01 BP 82 / 59; Pulse 134; Resp 16 S; Pulse Ox 97% on 4 lpm NC; bb 00:04 BP 92 / 61; Pulse 133; Resp 16; Pulse Ox 97% on 2 lpm NC; la1 04/01 20:49 Body Mass Index 17.71 (45.36 kg, 160.02 cm) bb Raymond Coma Score: 04/01 20:49 Eye Response: spontaneous(4). Verbal Response: inappropriate words(3). Motor Response: bb localizes pain(5). Total: 12. Trauma Score (Adult): 20:49 Eye Response: spontaneous(1); Verbal Response: inappropriate words(0); Motor Response: bb localizes pain(1); Systolic BP: > 89 mm Hg(4); Respiratory Rate: 10 to 29 per min(4); [place] Score: 12; Trauma Score: 10 22:27 Eye Response: spontaneous(1); Verbal Response: confused(1); Motor Response: withdraws la1 from pain(1); Systolic BP: > 89 mm Hg(4); Respiratory Rate: 10 to 29 per min(4); Raymond Score: 12; Trauma Score: 11 ED Course: 20:34 Patient arrived in ED. al2 20:38 Bentley Mesa MD is Attending Physician. rn 20:45 Arm band placed on Patient placed in an exam room, on a stretcher, on personnel monitor, bb on pulse oximetry. Family accompanied patient. 20:49 Triage completed. bb 20:49 Patient has correct armband on for positive identification. Placed in gown. Bed in low bb position. Call light in reach. Side rails up X2. Adult w/ patient. compliance monitor on. Pulse ox on. NIBP on. 20:49 Patient maintains SpO2 saturation greater than 95% on room air. bb 20:50 Thermoregulation: warm blanket given to patient. bb 20:55 Hiren Rosales, RN is Primary Nurse. la1 21:19 CT Head C Spine In Process Unspecified. EDMS 21:35 XRAY Pelvis In Process Unspecified. EDMS 21:36 XRAY Chest (1 view) In Process Unspecified. EDMS 21:36 XRAY Femur LEFT In Process Unspecified. EDMS 22:04 Guera Giordano MD is Hospitalizing Provider. rn 22:28 Davis cath inserted, using sterile technique, 18 Fr., by tunnel kiln firer, balloon inflated, to la1 gravity drainage, returned cloudy urine. Patient tolerated well. Inserted saline lock: 22 gauge in left forearm, using aseptic technique. Blood collected. 04/02 00:24 No provider procedures requiring assistance completed. Patient admitted, IV remains in bb place. Administered Medications: 04/01 22:26 Drug: morphine 2 mg Route: IVP; Site: left forearm; la1 22:29 Follow up: Response: No adverse reaction; Pain is decreased la1 22:27 Drug: Zofran 4 mg Route: IVP; Site: left forearm; la1 22:45 Follow up: Response: No adverse reaction la1 22:29 Drug: NS 0.9% 250 ml Route: IV; Rate: bolus; Site: left forearm; la1 22:40 Follow up: IV Status: Completed infusion la1 22:45 Drug: Lidocaine-Epinephrine -1%: (1:100,000) 10 ml Volume: 20 ml; Route: Infiltration; la1 23:34 Drug: Lopressor 2.5 mg Route: IVP; Site: left forearm; la1 04/02 00:06 Follow up: Response: No adverse reaction; HR decreased la1 00:03 Drug: NS 0.9% 500 ml Route: IV; Rate: bolus; Site: left forearm; la1 00:06 Follow up: IV Status: Completed infusion la1 Intake: 04/01 20:49 PO: 0ml; Total: 0ml. bb Outcome: 22:04 Decision to Hospitalize by Provider. rn 04/02 00:04 Admitted to Med/surg accompanied by nurse, room 411, with chart. la1 Condition: unchanged Medical management, laceration repair, imagingPatient's length of stay extended due to 00:25 Patient left the ED. bb Signatures: Dispatcher [employer] EDMS Yasmin Mtz RN RN Stephanei Wolfe RN RN bb Bentley Mesa MD MD rn Attema, Lee, RN RN la1 Caitlin, Ashly lozada Corrections: (The following items were deleted from the chart) 04/01 23:16 22:27 BP 119 / 70; Pulse 115bpm; Resp 20bpm; Pulse Ox 96% RA; Temp 98.8F Rectal; la1 la1
[2018-04-01 22:07] LABS: Absolute Lymphocytes (CBC) 0.9 K/uL (0.7-4.9); Absolute Monocytes 0.9 K/uL (0.1-1.3); Absolute Neutrophil 9.3 K/uL (1.8-8.0); Basophils % 0.5 % (0-1.3); Eosinophils % 0.2 % (0-4.4); MPV 10.5 fL (7.6-11.3); Monocytes % 7.7 % (3.3-12.3); RBC Red Blood Cell Count 4.22 M/uL (3.86-4.86)
[2018-04-01] MEDS ORDERED: ONDANSETRON 4 MG/2 ML VIAL ONE (22:08)
[2018-04-01] MEDS ORDERED: MORPHINE 4 MG/ML SYR ONE (22:08)
[2018-04-01 22:21] LABS: BUN Blood Urea Nitrogen 17 mg/dL (7-18); Bicarbonate 30 mmol/L (21-32); Glucose Level 101 mg/dL (74-106); Potassium 3.7 mmol/L (3.5-5.1); Sodium Level 140 mmol/L (136-145)
[2018-04-01] MEDS ORDERED: LIDOCAINE 1% W/EPI 1:100,000 MDV 50 ML VIAL ONE (22:41)
[2018-04-01] MEDS ORDERED: METOPROLOL TAR 50 MG TAB ONE (23:16)
[2018-04-01] MEDS ORDERED: METOPROLOL TARTRATE 5 MG/5 ML INJ IV ONE (23:27)
--- NOTE | 2018-04-01 23:37 | P.HP ---
Certification for Inpatient Patient admitted to: Inpatient With expected LOS: >2 Midnights Practitioner: I am a practitioner with admitting privileges, knowledge of patient current condition, hospital course, and medical plan of care. Services: Services provided to patient in accordance with Admission requirements found in Title 42 Section 412.3 of the Code of Federal Regulations Patient History Date of Service: 04/01/18 Reason for admission: hip fracture History of Present Illness: Ms Merchant is an 82 years old woman with history of Dementia, HTN, chronic a.fib, wheelchair bound, resident of a half-way, who fell from the wheelchair today leading with a forehead laceration, she was also complaining of left hip pain. Pelvic XR remarkable for left interthrocanteric fracture. Her POA is her daughter who is at the bedside. No history of fever or chills. Apparently the patient fell also yesterday without injuries. Lab work shows normal WBC count, she is tachycardic at 150 bpm. Home medications list reviewed: Yes - Past Medical/Surgical History -: alzehimers dementia -: HTN -: chronic A.Fib Past Surgical History: Reviewed- Non-Contributory - Family History Family History: Reviewed- Non-Contributory - Social History Smoking Status: Never smoker Alcohol use: No CD- Drugs: No Place of Residence: [facility] Review of Systems 10-point ROS is otherwise unremarkable Physical Examination - Physical Exam General: Alert, In no apparent distress, Demented HEENT: PERRLA, Mucous membr. moist/pink, Other (traumatic left forehead laceration), EOMI, Sclerae nonicteric Neck: Supple, 2+ carotid pulse no bruit, No LAD, Without JVD or thyroid abnormality Respiratory: Clear to auscultation bilaterally, Normal air movement Cardiovascular: Normal S1 S2, Irregular heart rate/rhythm Gastrointestinal: Normal bowel sounds, No tenderness Musculoskeletal: Tenderness (left hip) Integumentary: No rashes Neurological: Normal tone, Sensation intact, Normal affect Lymphatics: No axilla or inguinal lymphadenopathy - Studies Laboratory Data (last 24 hrs) 04/01/18 21:50: Creatinine Cancelled 04/01/18 21:50: WBC 11.2 H, Hgb 12.6, Hct 38.0, Plt Count 242 04/01/18 21:50: Sodium 140, Potassium 3.7, BUN 17, Creatinine 0.60, Glucose 101 Assessment and Plan - Problems (Diagnosis) (1) Hip fracture Current Visit: Yes Status: Acute Qualifiers: Encounter type: initial encounter Fracture type: closed Laterality: left Qualified Code(s): S72.002A - Fracture of unspecified part of neck of left femur, initial encounter for closed fracture (2) Dementia Current Visit: Yes Status: Acute Qualifiers: Dementia type: Alzheimer's disease Alzheimer's disease onset: unspecified onset Dementia behavioral disturbance: without behavioral disturbance Qualified Code(s): G30.9 - Alzheimer's disease, unspecified; F02.80 - Dementia in other diseases classified elsewhere without behavioral disturbance (3) HTN (hypertension) Current Visit: Yes Status: Acute Qualifiers: Hypertension type: essential hypertension Qualified Code(s): I10 - Essential (primary) hypertension (4) Chronic a-fib Current Visit: Yes Status: Acute - Plan The patient mitch be admitted to the hospital due to left hip fracture. Will consult Dr Johns for evaluation and recommendations. Her A.Fib is at 150's, responding well to IV beta blcoker. Continue IV fluids and symptomatic medication. - Advance Directives Does patient have a Living Will: No Does patient have a Durable POA for Healthcare: No - Code Status/Comfort Care Code Status Assessed: Yes Code Status: Do Not Resuscitate
[2018-04-02] MEDS ORDERED: NA CHLORIDE 0.9% 500 ML ONE (00:08)
[2018-04-02] MEDS ORDERED: KETOROLAC 30 MG/ML INJ IV PRN (01:03)
[2018-04-02] MEDS ORDERED: ALBUTEROL 2.5 MG/3 ML NEB SOL NEB PRN (01:03)
[2018-04-02] MEDS ORDERED: ONDANSETRON 4 MG/2 ML VIAL IV PRN (01:03)
[2018-04-02] MEDS: NA CHLORIDE 0.9% 1,000 ML IV SCH ×3 (01:14→21:58)
[2018-04-02 02:02] LABS: Urine Appearance CLOUDY; Urine Blood 3+ (NEG); Urine Color DK YELLOW; Urine Glucose NEGATIVE (NEG); Urine Protein 1+ (NEG)
[2018-04-02 02:10] LABS: Urine Bilirubin NEGATIVE (NEG); Urine Microscopic Reflex ORDER UMIC
[2018-04-02 02:20] LABS: Urine Amorphous Sediment 1+ /HPF (NONE SEEN); Urine Bacteria >50 /HPF (<20); Urine Culture Reflex Order REFLEXED; Urine RBC 20-50 /HPF (NONE SEEN)
[2018-04-02 07:06] LABS: Absolute Lymphocytes (CBC) 0.8 K/uL (0.7-4.9); Absolute Monocytes 1.2 K/uL (0.1-1.3); Absolute Neutrophil 9.9 K/uL (1.8-8.0); Basophils % 0.3 % (0-1.3); Hematocrit 32.6 % (36.0-45.0); Lymphocytes % 6.5 % (15.3-44.8); MPV 10.4 fL (7.6-11.3); Monocytes % 10.4 % (3.3-12.3); RBC Red Blood Cell Count 3.58 M/uL (3.86-4.86)
[2018-04-02 07:22] LABS: BUN Blood Urea Nitrogen 15 mg/dL (7-18); Bicarbonate 32 mmol/L (21-32); Glucose Level 104 mg/dL (74-106); Potassium 4.2 mmol/L (3.5-5.1); Sodium Level 144 mmol/L (136-145)
[2018-04-02 10:14] LABS: Protime INR 1.03
[2018-04-02] MEDS ORDERED: DOCUSATE NA 100 MG CAP PO PRN (13:16)
[2018-04-02] MEDS ORDERED: RISPERIDONE MICROSPHERES IM SCH (13:30)
[2018-04-02] MEDS ORDERED: FENTANYL TD SCH ×2 (13:30→15:00)
--- NOTE | 2018-04-02 16:28 | EKG ---
Test Date: 2018-04-01 Test Time: 22:30:17 Horseradish Maker: JNT MEASUREMENT RESULTS: Intervals: Rate: 141 [place]: QRSD: 64 QT: 332 QTc: 508 [place]: P: [place]: QRS: 109 T: 165 INTERPRETIVE STATEMENTS: Atrial fibrillation with rapid ventricular response with premature ventricular or aberrantly conducted complexes Rightward axis Septal infarct, age undetermined Abnormal ECG No previous ECG available for comparison Electronically Signed On 04-02-18 16:27:40 BUILDING CLEANER by Kg Cruz
--- NOTE | 2018-04-02 16:50 | CON ---
CARDIOLOGY CONSULTATION History Of Present Illness: Mrs. Merchant somehow managed to fracture her femoral neck. She spends all of her time in bed. She has a previous history of a femoral neck fracture and a fracture of her humerus, and at that time, she declined having any surgery. She has been bedridden since then, and we do not suspect that those have healed. I am not 100% sure if it was the right leg in the past or not. Today, we see a left intertrochanteric fracture. The patient has expressed her wishes when she was alert and cogent to her daughter, who has power of regulatory attorney and is present in the room during th e exam, that she did not want to have any surgeries ever. In fact, declined to have any surgery to f ix broken bones. Physical Examination: General: The patient is obtunded. She is breathing. For the most part, her eyes stay closed. Lungs: Clear. Heart: Irregularly irregular, very rapid. EKG shows atrial fib, nonspecific repolarization abnormal ity. Extremities: Wasted, almost no muscle tone. There seems to be near pressure ulcers on her heels. Diagnostic Studies: Electrocardiogram, heart rate is about 150. During my physical exam, the heart rate was about 110. Impression And Plan: My impression is that the patient would be a very high risk for taking to surge ry. I would fully expect that she would not be able to be extubated if she was given general anesthe yesenia with a protected airway. The daughter is not very anxious of having her go through a surgery whe n she knows she did not want it. So, they are contemplating pain relief only. No surgery. If she d oes require surgery, I will be very concerned that she will end up in a ventilator and be non-extubat able, have to get a tracheostomy tube, and be at even higher risk and she is now getting pneumonia. Thank you very much for your kind referral of Mrs. Merchant. We will follow her with you. BASSEM/ELANA Voice ID: [id number] Report ID: [id number]
[2018-04-02] MEDS: CIPROFLOXACIN 400mg IV 400 MG/200 ML BAG IV SCH (18:52)
--- NOTE | 2018-04-02 18:59 | PN ---
Date of Progress Note: 04/02/2018 Subjective: Patient was seen and examined. Chart reviewed and case discussed with RN. The patient' s daughter at the bedside, who is medical power of tax associate attorney. Case discussed with Dr. Johns. The ana ent is demented at baseline, very low quality of life; has been nonambulatory for the past couple of years. Medications: List reviewed. Code Status: Do not resuscitate. The patient's daughter is medical power of tax associate attorney. Physical Examination: Vital Signs: Temperature 98.9, heart rate 132, blood pressure 125/74, respirations 16, O2 98% on 2 L via nasal cannula. General: Asleep, arousable, nonverbal, in some mild pain, ill-appearing, cachectic, frail female. B GA 15. CV: S1, S2. Irregularly irregular rhythm. Peripheral pulses are weak. Respiratory: Diminished breath sounds. Gastrointestinal: Abdomen is soft, nontender, nondistended. Positive bowel sounds. Extremities: No clubbing, cyanosis, or edema. Musculoskeletal: Left lower extremity shortening, rotated. Neuro: The patient is nonverbal. Diminished strength in lower extremities, however, unable to prope rly assess due to patient's condition. Laboratory Data: Sodium 144, potassium 4.2, chloride 107, CO2 32, BUN 15, creatinine 0.56, glucose 1 04, calcium 8.2. WBC 11.9, H and H 10.6/32.6, platelets 211, neutrophils 82%. UA: Positive nitrite , 3+ leukocyte esterase, 3+ blood, 20-50 rbc, 20-50 wbc, greater than 50 urine bacteria. Urine cultu res pending. Imaging Studies: Head CT cervical spine shows no hemorrhage or acute intracranial finding, atrophy, old infarction changes, and chronic ischemic changes present matching January 2018 study. Prominent cervical spine degenerative changes. No fracture or acute finding. Femur x-ray shows left intertro chanteric fracture. Bones are osteopenic. Chest x-ray, extensive interstitial lung disease, believe d to be chronic. Assessment: An 82-year-old female with: 1.Left intertrochanteric fracture, initial encounter, nondisplaced closed fracture. Medical power o f tax associate attorney does not wish for patient to pursue with any sort of intervention. Dr. Johns with Orthoped ics has been consulted; will likely do palliative care. The patient has low quality of life, severe dementia, nonambulatory, has had multiple falls recently. 2.Laceration of the left forehead, eyebrow area status post suture closure. CT head and spine does not show any acute fractures. The patient does have chronic atrophy and degenerative disk disease. 3.Alzheimer dementia, early onset without behavioral disturbance. The patient has severe dementia. 4.Essential hypertension. Resume home medications as appropriate. 5.Chronic atrial fibrillation, on aspirin alone for anticoagulation. 6.Failure to thrive. 7.Acute cystitis with hematuria. We will start on Cipro and follow up on urine culture. 8.Osteopenia. The patient's fracture is pathologic. Plan: The patient's medical power of tax associate attorney, daughter, is interested in palliative care and hospic e care. We will obtain social work consultation and move towards palliation. MARGAUX Voice ID: [id number] Report ID: [id number]
[2018-04-02] MEDS: MIRTAZAPINE 15 MG TAB PO SCH (22:08)
[2018-04-02] MEDS: DRONEDARONE 400 MG TAB PO SCH (22:08)
[2018-04-02] MEDS: DIVALPROEX NA 125 MG CAP PO SCH (22:08)
--- NOTE | 2018-04-03 00:59 | CON ---
Date of Consultation: 04/02/2018 Reason For Consultation: Left hip pain. History Of Present Illness: Ms. Merchant is an 82-year-old female with history of dementia, hypertension, chronic atrial fibrillation, who presented to the ER yesterday after sustaining a fall, and she was noted to have a laceration to her forehead as well as left hip pain. X-rays in the emergency room demonstrated a left intertrochanteric femur fracture as well as chronic fracture of the right acetabulum. The patient has history of dementia. She is nonambulatory secondary to a prior right hip fracture as well as right proximal humerus fracture, and at that time, she refused surgery and stated she did not want any further surgeries as confirmed by her daughter who has medical power of state's attorney. The patient currently lives at [place] per daughter's history. Review of Systems: As above, otherwise negative. Past Medical History: Includes Alzheimer's dementia, hypertension, atrial fibrillation. Social History: Denies tobacco, alcohol, or drug use. Lives at [facility]. Family History: Reviewed and noncontributory. Physical Examination: General: In no apparent distress. HEENT: Normocephalic. There is a laceration, which has been situated over her forehead. Neck: Supple. Cardiovascular: Brisk cap refill to all digits. Chest: Nonlabored breathing. Abdomen: Nondistended. Psychiatric: The patient does not respond appropriately and is currently medicated. Extremities: Left lower extremity, she does grimace with range of motion of the left hip. Tenderness to palpation of the left hip. No swelling of the femur, knee, or tibia. Abrasion over the lateral aspect of the left knee. Right lower extremity, no gross deformities. No obvious dislocations. No significant swelling or deformity noted. Bilateral upper extremities, no obvious deformities. No gross dislocations. Brisk cap refill in all digits. X-rays: X-rays of the pelvis and left femur demonstrated displaced intertrochanteric left femur fracture. Assessment And Plan: Ms. Merchant is an 82-year-old female with a left intertrochanteric femur fracture. The patient is nonambulatory for a long period of time and is demented. In the past, the patient has not been interested in surgery, and I discussed with the patient's daughter who has medical power of state's attorney all options including surgery to aid with pain management as well as hygiene and care. Given the patient's prior wishes, the daughter is not interested in surgical treatment at this time. We did discuss hospice treatment, which would include pain management, and Social Work will discuss with the patient further this option. We will follow up with the patient as needed. JOSE M/ELANA Voice ID: [id number] Report ID: [id number] JOANNE
[2018-04-03] MEDS: NA CHLORIDE 0.9% 1,000 ML IV SCH ×2 (05:49→17:05)
[2018-04-03] MEDS: POLYETHYL GLY 3350 17 GM/DOSE PO SCH (09:00)
[2018-04-03] MEDS ORDERED: POLYETHYLENE GLYCOL 17 GM PO SCH (09:00)
[2018-04-03] MEDS ORDERED: DULOXETINE HCL PO SCH (09:00)
[2018-04-03] MEDS: CIPROFLOXACIN 400mg IV 400 MG/200 ML BAG IV SCH (09:29)
[2018-04-03] MEDS: ASPIRIN 81 MG CHEWABLE TABLET PO SCH (09:37)
[2018-04-03] MEDS: DRONEDARONE 400 MG TAB PO SCH ×2 (09:41→20:28)
[2018-04-03] MEDS: DULOXETINE 30 MG CAP PO SCH (09:42)
[2018-04-03] MEDS: DOCUSATE NA 100 MG CAP PO SCH (09:55)
[2018-04-03] MEDS: DIVALPROEX NA 125 MG CAP PO SCH ×2 (10:03→20:28)
--- NOTE | 2018-04-03 12:39 | P.PN ---
Subjective Date of Service: 04/03/18 Chief Complaint: left hip fracture Subjective: No new changes, Demented Physical Examination - Vital Signs Temperature: 97.3 F Blood Pressure: 84/51 Pulse: 117 Respirations: 16 Pulse Ox (%): 98 - Physical Exam General: In no apparent distress, Cachectic Musculoskeletal: Other (LLE: no significant swelling; pain with motion of the left hip) Assessment And Plan - Plan Rere is an 82 yo female with a left IT femur fracture -after discussion with the patient's daughter, YVONNE, we will proceed with nonoperative management -She understands risks of pain, nonunion with nonoperative treatment as well as risks with surgical treatment -hospice has been consulted and patient will have hospice through [facility] -patient may followup in my clinic as needed
--- NOTE | 2018-04-03 17:40 | PN ---
Date of Progress Note: 04/03/2018 Subjective: The patient is seen and examined. Chart reviewed and case discussed with RN, family at the bedside. Family requesting hospice. Currently undergoing evaluation. The patient is still not very responsive, did wake up today to take her pills. Medications: List reviewed. Physical Examination: Vital Signs: Temperature 98.1, heart rate 126, blood pressure 143/98, respirations 16, O2 92% on 3 L via nasal cannula. General: Awake, alert, not following commands, ill-appearing elderly female, frail, cachectic. BMI 15. CV: S1, S2. Irregularly irregular, rapid rate. Peripheral pulses present. Respiratory: Moving air well bilaterally. No wheezing. Gastrointestinal: Abdomen is soft, nontender, nondistended. Positive bowel sounds. Extremities: No clubbing, cyanosis, or edema. Musculoskeletal: Right hip tenderness to palpation. Lower extremity shortened and rotated. Neuro: Unable to properly assess, but moves all 4 extremities. Nonverbal. Laboratory Data: Urine culture growing gram-negative rods. Assessment And Plan: An 82-year-old female with: 1. Left intertrochanteric fracture, initial encounter, nondisplaced closed fracture. Nonoperative management. Appreciate Dr. Johns's input. 2. Laceration of the left forehead, eyebrow area, status post suture closure. 3. Alzheimer dementia, early onset without behavioral disturbance. 4. Essential hypertension, stable. 5. Acute metabolic encephalopathy likely related to acute urinary tract infection. 6. Acute cystitis with hematuria. Continue Cipro. Follow up on urine culture , currently growing gram-negative rods. 7. Failure to thrive. 8. Chronic atrial fibrillation, on aspirin for anticoagulation. Continue rate control. 9. Osteopenia. Plan: Medical [id number] is requested for hospice. [facility] has been called. We will initiate hospice and discharge once equipment has been delivered. /ELANA Voice ID: [id number] Report ID: [id number]
[2018-04-03] MEDS: MIRTAZAPINE 15 MG TAB PO SCH (20:29)
[2018-04-04] MEDS: NA CHLORIDE 0.9% 1,000 ML IV SCH (02:57)
[2018-04-04] MEDS: CIPROFLOXACIN 400mg IV 400 MG/200 ML BAG IV SCH (08:46)
[2018-04-04] MEDS: DOCUSATE NA 100 MG CAP PO SCH (08:47)
[2018-04-04] MEDS: DULOXETINE 30 MG CAP PO SCH (08:47)
[2018-04-04] MEDS: DRONEDARONE 400 MG TAB PO SCH (08:47)
[2018-04-04] MEDS: ASPIRIN 81 MG CHEWABLE TABLET PO SCH (08:48)
[2018-04-04] MEDS: DIVALPROEX NA 125 MG CAP PO SCH (08:48)
[2018-04-04] MEDS: POLYETHYL GLY 3350 17 GM/DOSE PO SCH (08:48)
--- NOTE | 2018-04-09 13:38 | P.DS ---
Admission Date: 04/01/18 Discharge Date: 04/09/18 Disposition: HOSPICE-MEDICAL FACILITY Discharge Condition: FAIR Reason for Admission: left hip fracture Consultations: Dr. Johns, orthopedic surgery Brief History of Present Illness: Ms Merchant is an 82 years old woman with history of Dementia, HTN, chronic a.fib, wheelchair bound, resident of a care home, who fell from the wheelchair today leading with a forehead laceration, she was also complaining of left hip pain. Pelvic XR remarkable for left interthrocanteric fracture. Her POA is her daughter who is at the bedside. No history of fever or chills. Apparently the patient fell also yesterday without injuries. Lab work shows normal WBC count, she is tachycardic at 150 bpm. Hospital Course: Patient was admitted for left intertrochanteric fracture. Orthopedic surgery was consulted, no surgical intervention recommended at this time. Patient was started on IV antibiotics for urine culture. Patient has a history of Alzheimer's dementia, early onset, failure to thrive, acute metabolic encephalopathy, hypertension, chronic atrial fibrillation. The multiple comorbidities, decreased quality of life daughter, [employer] medical power-of -erisa attorney requested hospice consultation. [facility], [facility] accepted patient. Patient was then discharged home with hospice was equipment had been delivered and set up. Vital Signs/Physical Exam: Temp Pulse Resp BP Pulse Ox 98.1 F 103 H 14 97/76 100 04/04/18 11:00 04/04/18 11:00 04/04/18 11:00 04/04/18 11:00 04/04/18 08:00 General: Cachectic, Mild distress, Moderate distress, Confused HEENT: Atraumatic, PERRLA, EOMI Neck: Supple, JVD not distended Respiratory: Clear to auscultation bilaterally, Normal air movement Cardiovascular: Irregular heart rate/rhythm (Irregularly irregular, rapid rate) Laboratory Data at Discharge: WBC 11.9 K/uL (4.3-10.9) H 04/02/18 06:32 Hgb 10.6 g/dL (12.0-15.0) L 04/02/18 06:32 Hct 32.6 % (36.0-45.0) L 04/02/18 06:32 Plt Count 211 K/uL (152-406) 04/02/18 06:32 PT 12.1 SECONDS (9.5-12.5) 04/02/18 09:56 INR 1.03 04/02/18 09:56 APTT 28.1 SECONDS (24.3-36.9) 04/02/18 09:56 Sodium 144 mmol/L (136-145) 04/02/18 06:32 Potassium 4.2 mmol/L (3.5-5.1) 04/02/18 06:32 BUN 15 mg/dL (7-18) 04/02/18 06:32 Creatinine 0.56 mg/dL (0.55-1.3) 04/02/18 06:32 Glucose 104 mg/dL (74-106) 04/02/18 06:32 Home Medications: Acetaminophen [Tylenol] 2 tab PO Q12H 04/02/18 Aspirin 1 tab PO DAILY 04/02/18 Divalproex Sodium [Depakote Sprinkle] 1 cap PO BID 04/02/18 Docusate [Colace Cap*] 1 cap PO DAILY 04/02/18 Docusate [Colace Cap*] 1 cap PO Q8H PRN 04/02/18 Dronedarone HCl [Multaq] 1 tab PO BID 04/02/18 Duloxetine HCl 1 cap PO DAILY 04/02/18 Furosemide 1 tab PO DAILY 04/02/18 Mirtazapine [Remeron] 1 tab PO BEDTIME 04/02/18 Polyethylene Glycol 1450 17 gm PO DAILY 04/02/18 Risperidone Microspheres 12.5 mg IM SEECOM 04/02/18 fentaNYL [Fentanyl] 1 patch TD Q72H 04/02/18 Diet: Regular Activity: Ad ted Followup: Rodolfo Johns MD [ACTIVE - CAN ADMIT] - If your Condition Changes Time spent managing pt's care (in minutes): 45
== END 2018-04-04 11:57 | disposition hospice, inpatient (51) | DRG 535 ==
LOC: ER 20:25 → ERHOLD 23:17 → 4TH 04-02 00:16
PROVIDERS: ADMIT Internal Medicine; ATTEND Internal Medicine
PROC: 0JQ13ZZ Repair Face Subcutaneous Tissue and Fascia, Percutaneous Approach (ICD-10-PCS; principal; 2018-04-01)
DX: S72.142A Displaced intertrochanteric fracture of left femur, initial encounter for closed fracture (principal); G93.41 Metabolic encephalopathy; N30.01 Acute cystitis with hematuria; Z68.1 Body mass index [BMI] 19.9 or less, adult; W05.0XXA Fall from non-moving wheelchair, initial encounter; Y92.199 Unspecified place in other specified residential institution as the place of occurrence of the external cause; S01.112A Laceration without foreign body of left eyelid and periocular area, initial encounter; S01.81XA Laceration without foreign body of other part of head, initial encounter; G30.9 Alzheimer's disease, unspecified; F02.80 Dementia in other diseases classified elsewhere, unspecified severity, without behavioral disturbance, psychotic disturbance, mood disturbance, and anxiety; I10 Essential (primary) hypertension; I48.2 Chronic atrial fibrillation; R62.7 Adult failure to thrive; Z99.3 Dependence on wheelchair
CPT/HCPCS: 36415; 51702; 70450; 71045; 72125; 72170; 80048; 81003; 81015; 82962; 85025; 85610; 85730; 86850; 86900; 86901; 87077; 87086; 87088; 87186; 93005; 96374; 96375; 99285; J0744; J2405; J7030